=== PATIENT | male | born 1970 | race Caucasian/White ===

== ENCOUNTER → 2024-06-10 17:12 | Outpatient (REF) | payer BC, SELFPAY | LOC: RAD 17:12 | PROVIDERS: ATTENDING PHYSICIAN Physician Assistant | DX: M54.2 Cervicalgia (principal); M79.602 Pain in left arm; M25.512 Pain in left shoulder; R20.2 Paresthesia of skin | CPT/HCPCS: 72050; 73030 ==

== ENCOUNTER → 2024-07-27 17:03 | Outpatient (REF) | payer OTHER, SELFPAY | LOC: PAVMRI 17:03 | PROVIDERS: ATTENDING PHYSICIAN Physician Assistant | DX: M50.30 Other cervical disc degeneration, unspecified cervical region (principal); M54.12 Radiculopathy, cervical region; R20.2 Paresthesia of skin | CPT/HCPCS: 72141 ==